=== PATIENT | female | born 1995 | race Hispanic/Latino ===

== ENCOUNTER 2019-01-21 03:12 | Emergency (ER) | payer MEDICAID ==
[2019-01-21] MEDS ORDERED: SODIUM CHLORIDE 0.9% 1000ML 1,000 ML IV ONE (03:42)
[2019-01-21] MEDS ORDERED: CYCLOBENZAPRINE HCL 10 MG TABLET PO ONE ×2 (05:31→05:41)
[2019-01-21] MEDS ORDERED: KETOROLAC TROMETHAMINE 15MG/ML IV ONE (05:35)
[2019-01-21 08:40] LABS: BASOPHILS % (AUTO) 0.6 % (0.0-5.0); EOSINOPHILS % (AUTO) 6.3 % (0.0-8.0); LYMPHOCYTES % (AUTO) 30.6 % (21.0-51.0); MEAN CORPUSCULAR HEMOGLOBIN 30.1 pg (27.0-33.0); MEAN CORPUSCULAR HGB CONC 34.4 g/dL (32.0-36.0); MEAN CORPUSCULAR VOLUME 87.5 fL (79-99); MONOCYTES % (AUTO) 7.9 % (3.0-13.0); NEUTROPHILS % (AUTO) 54.6 % (40.0-77.0); NUCLEATED RED BLOOD CELLS 0.1 % (0.0-0.19); PLATELET COUNT (AUTO) 268 K/uL (130-400); RED CELL DISTRIBUTION WIDTH 13.9 % (11.0-15.5); WHITE BLOOD COUNT (AUTO) 8.2 K/uL (4.8-10.8)
[2019-01-21 09:05] LABS: APPEARANCE,URINE CLEAR (CLEAR); COLOR,URINE YELLOW (YELLOW); GLUCOSE, URINE (UA) NEGATIVE (NEGATIVE); KETONES,URINE NEGATIVE (NEGATIVE); OCCULT BLOOD,URINE LARGE (NEGATIVE); PROTEIN,URINE NEGATIVE (NEGATIVE)
[2019-01-21 09:06] LABS: BILIRUBIN,URINE NEGATIVE (NEGATIVE); LEUKOCYTE ESTERASE ,URINE NEGATIVE (NEGATIVE); NITRATE,URINE NEGATIVE (NEGATIVE); UROBILINOGEN,URINE 0.2 mg/dL (0.2-1.0)
[2019-01-21 09:08] LABS: BACTERIA,URINE None Seen /HPF (None Seen); RBC,URINE 51-100 /HPF (0-1); SQUAMOUS EPITHELIAL CELL,UR Few /HPF (0-2); WBC,URINE None Seen /HPF (0-1)
[2019-01-21 09:14] LABS: POTASSIUM 3.6 mmol/L (3.5-5.1)
[2019-01-21 09:15] LABS: ALBUMIN 3.4 g/dL (3.5-5.0); BILIRUBIN,TOTAL 0.2 mg/dL (0.2-1.0); CREATININE 0.6 mg/dL (0.5-1.5); TOTAL PROTEIN, SERUM 7.4 g/dL (6.0-8.3)
== END 2019-01-21 05:53 | disposition home or self-care (01) ==
LOC: EDH 03:12
DX: O03.9 Complete or unspecified spontaneous abortion without complication (principal); R19.7 Diarrhea, unspecified; R10.2 Pelvic and perineal pain; Z3A.01 Less than 8 weeks gestation of pregnancy; Z90.49 Acquired absence of other specified parts of digestive tract
CPT/HCPCS: 36415; 80053; 81001; 83690; 84702; 85025; 86850; 86900; 86901; 96361; 96374; 99285; J1885; J7030

== ENCOUNTER 2020-12-23 18:37 | Observation (INO) | payer MEDICAID ==
[~2020-12-23] VITALS: Ht 154.9 cm; Wt 101.2 kg
[2020-12-23 19:20] LABS: APPEARANCE,URINE Clear (CLEAR); BILIRUBIN,URINE Negative (NEGATIVE); COLOR,URINE Yellow (YELLOW); GLUCOSE, URINE (UA) Negative (NEGATIVE); KETONES,URINE Negative (NEGATIVE); LEUKOCYTE ESTERASE ,URINE Large (NEGATIVE); NITRATE,URINE Negative (NEGATIVE); OCCULT BLOOD,URINE Negative (NEGATIVE); PROTEIN,URINE Negative (NEGATIVE); UROBILINOGEN,URINE 0.2 mg/dL (0.2-1.0)
[2020-12-23 19:27] LABS: BACTERIA,URINE Rare /HPF (None Seen); RBC,URINE 0-1 /HPF (0-1)
[2020-12-23 19:28] LABS: SQUAMOUS EPITHELIAL CELL,UR Few /HPF (0-2)
[2020-12-23] MEDS ORDERED: PREN-196 PO (19:52)
[2020-12-23] MEDS ORDERED: LACTATED RINGERS 1000ML 1,000 ML IV SCH ×2 (20:00→20:30)
[2020-12-23 20:19] LABS: AMPHET/METH SCREEN,URINE NEGATIVE (NEGATIVE); BARBITURATE SCREEN, URINE NEGATIVE (NEGATIVE); BENZODIAZEPINES SCREEN,URINE NEGATIVE (NEGATIVE); CANNABINOID SCREEN,URINE NEGATIVE (NEGATIVE); COCAINE SCREEN,URINE NEGATIVE (NEGATIVE); OPIATE SCREEN,URINE NEGATIVE (NEGATIVE); PHENCYCLIDINE SCREEN,URINE NEGATIVE (NEGATIVE)
[2020-12-23] MEDS ORDERED: TERBUTALINE SULFATE VIAL 1MG/ML SQ ONE (20:34)
[2020-12-23] MEDS ORDERED: LACTATED RINGERS 1000ML 1,000 ML IV ONE (20:34)
[2020-12-23] MEDS: TERBUTALINE SULFATE VIAL 1MG/ML SQ SCH ×3 (20:39→22:06)
[2020-12-23 21:03] LABS: MEAN CORPUSCULAR HEMOGLOBIN 27.3 pg (27.0-33.0); MEAN CORPUSCULAR HGB CONC 31.9 g/dL (32.0-36.0); MEAN CORPUSCULAR VOLUME 85.6 fL (79-99); RED BLOOD CELL COUNT(AUTO) 3.74 MIL/uL (4.00-5.50); RED CELL DISTRIBUTION WIDTH 12.8 % (11.0-15.5)
[2020-12-25 12:09] LABS: HEPATITIS Bs ANTIGEN SCREEN P Negative (Negative)
== END 2020-12-24 00:45 | disposition home or self-care (01) ==
LOC: EDH 18:37 → LDH 18:38
PROVIDERS: ADMIT Obstetrics & Gynecology; ATTEND Obstetrics & Gynecology
DX: O62.9 Abnormality of forces of labor, unspecified (principal); O24.913 Unspecified diabetes mellitus in pregnancy, third trimester; Z3A.34 34 weeks gestation of pregnancy
CPT/HCPCS: 36415; 59025; 80305; 81001; 82947; 85027; 86592; 86850; 86900; 86901; 87088; 87340; 96360; 96361; 96372; 99284; G0378 ×6; J3105; J7120

== ENCOUNTER 2021-01-10 20:51 | Observation (INO) | payer MEDICAID ==
[~2021-01-10] VITALS: Ht 154.9 cm; Wt 102.5 kg
[~2021-01-10 20:51] MED LIST: PREN-196 PO
[2021-01-10 21:21] VITALS: BP 134/68
[2021-01-10 21:30] LABS: APPEARANCE,URINE Clear (CLEAR); BILIRUBIN,URINE Negative (NEGATIVE); COLOR,URINE Yellow (YELLOW); GLUCOSE, URINE (UA) Negative (NEGATIVE); KETONES,URINE 40 mg/dL (NEGATIVE); LEUKOCYTE ESTERASE ,URINE Large (NEGATIVE); NITRATE,URINE Negative (NEGATIVE); OCCULT BLOOD,URINE Negative (NEGATIVE); PROTEIN,URINE Negative (NEGATIVE)
[2021-01-10 21:36] LABS: BACTERIA,URINE Few /HPF (None Seen); RBC,URINE 0-1 /HPF (0-1)
[2021-01-10 21:37] LABS: SQUAMOUS EPITHELIAL CELL,UR Few /HPF (0-2)
[2021-01-10 21:38] LABS: AMPHET/METH SCREEN,URINE NEGATIVE (NEGATIVE); BARBITURATE SCREEN, URINE NEGATIVE (NEGATIVE); BENZODIAZEPINES SCREEN,URINE NEGATIVE (NEGATIVE); CANNABINOID SCREEN,URINE NEGATIVE (NEGATIVE); COCAINE SCREEN,URINE NEGATIVE (NEGATIVE); OPIATE SCREEN,URINE NEGATIVE (NEGATIVE); PHENCYCLIDINE SCREEN,URINE NEGATIVE (NEGATIVE)
[2021-01-10] MEDS: LACTATED RINGERS 1000ML 1,000 ML IV SCH (22:55)
[2021-01-11] MEDS ORDERED: BUTORPHANOL TARTRATE 2 MG/ML IVP ONE (02:00)
[2021-01-11] MEDS: LACTATED RINGERS 1000ML 1,000 ML IV SCH (04:57)
== END 2021-01-11 10:00 | disposition home or self-care (01) ==
LOC: EDH 20:51 → LDH 20:52
PROVIDERS: ADMIT Obstetrics & Gynecology; ATTEND Obstetrics & Gynecology
DX: O62.9 Abnormality of forces of labor, unspecified (principal); O21.2 Late vomiting of pregnancy; Z3A.36 36 weeks gestation of pregnancy
CPT/HCPCS: 59025; 80305; 81001; 87088; 96361 ×3; 96374; G0378 ×13; J0595; J7120 ×2; 96360

== ENCOUNTER 2022-05-29 07:41 | Emergency (ER) | payer MEDICAID ==
[~2022-05-29] VITALS: Ht 154.9 cm; Wt 99.8 kg
[~2022-05-29 07:41] MED LIST changes: +METR-361 PO; +PREN1TAB80 PO
[2022-05-29 08:47] LABS: APPEARANCE,URINE CLEAR (CLEAR); BILIRUBIN,URINE NEGATIVE (NEGATIVE); COLOR,URINE LIGHT-YELLOW (YELLOW); GLUCOSE, URINE (UA) NEGATIVE (NEGATIVE); KETONES,URINE NEGATIVE (NEGATIVE); LEUKOCYTE ESTERASE ,URINE NEGATIVE Leu/uL (NEGATIVE); NITRATE,URINE NEGATIVE (NEGATIVE); PH,URINE 5.5 (5.0-8.0); PROTEIN,URINE NEGATIVE (NEGATIVE); UROBILINOGEN,URINE 0.2 mg/dL (0.2-1.0)
[2022-05-29 08:50] LABS: BACTERIA,URINE FEW /HPF (None Seen); MUCUS,URINE RARE LPF (None Seen); SQUAMOUS EPITHELIAL CELL,UR MOD /HPF (0-2)
[2022-05-29 08:55] LABS: OCCULT BLOOD,URINE SMALL (NEGATIVE)
[2022-05-29] MEDS ORDERED: NAPR-1196 PO (09:34)
[2022-05-29 10:08] VITALS: BP 123/78
== END 2022-05-29 10:12 | disposition home or self-care (01) ==
LOC: EDH 07:41
DX: N94.6 Dysmenorrhea, unspecified (principal); Z90.49 Acquired absence of other specified parts of digestive tract; Z98.890 Other specified postprocedural states; Z79.899 Other long term (current) drug therapy
CPT/HCPCS: 76856; 81001; 81025